=== PATIENT | male | born 1995 | race Caucasian/White ===

== ENCOUNTER 2023-05-23 10:42 | Emergency (ER) | payer OTHER ==
[~2023-05-23] VITALS: Ht 167.6 cm; Wt 90.7 kg
[2023-05-23 10:59] VITALS: BP 139/84; PULSE 93; RESP 18; TEMP 97.8; O2SAT 98
[2023-05-23 11:09] VITALS: BP 139/84; PULSE 93; RESP 18; TEMP 97.8; O2SAT 98
[2023-05-23] MEDS ORDERED: KETOROLAC 30 MG/ML VIAL IM ONE (11:30)
[2023-05-23] MEDS ORDERED: LIDOCAINE 5% 1 EA PATCH TP ONE (11:30)
[2023-05-23] MEDS ORDERED: CYCLOBENZAPRINE 10 MG TAB PO ONE (11:30)
[2023-05-23] MEDS ORDERED: IBUP-2213 PO (13:20)
[2023-05-23] MEDS ORDERED: LID5T TP (13:20)
[2023-05-23] MEDS ORDERED: CYCL-711 PO (13:20)
[2023-05-23] MEDS ORDERED: NEOMYCIN/POLYMYXIN/BACITRACIN 0.9 GM/1 PKT TP ONE (13:45)
== END 2023-05-23 14:01 | disposition home or self-care (01) ==
LOC: MED 10:42
DX: S43.491A Other sprain of right shoulder joint, initial encounter (principal); S39.012A Strain of muscle, fascia and tendon of lower back, initial encounter; S20.211A Contusion of right front wall of thorax, initial encounter; S09.90XA Unspecified injury of head, initial encounter; V49.88XA Car occupant (driver) (passenger) injured in other specified transport accidents, initial encounter; Y93.89 Activity, other specified; Y92.89 Other specified places as the place of occurrence of the external cause; Y99.8 Other external cause status
CPT/HCPCS: 71101; 72100; 73030; 96372; 99284; J1885